=== PATIENT | female | born 1995 | race Caucasian/White ===

== ENCOUNTER 2016-06-12 18:22 | Emergency (ER) | payer MEDICAID ==
[~2016-06-12] VITALS: Ht 167.6 cm; Wt 63.9 kg
[~2016-06-12 18:22] MED LIST: NONE PER PT
[2016-06-12] MEDS ORDERED: ONDANSETRON ODT 4 MG ONE (18:41)
[2016-06-12] MEDS ORDERED: ONDANSETRON ODT 4 MG PO ONE (19:00)
[2016-06-12 19:03] LABS: ASPARTATE AMINO TRANSFERASE 24 U/L (15-37); BLOOD UREA NITROGEN 14 mg/dL (7-18)
[2016-06-12 20:40] VITALS: BP 122/78
== END 2016-06-12 20:42 | disposition home or self-care (01) ==
LOC: ED 19:43
DX: R10.32 Left lower quadrant pain (principal); R10.31 Right lower quadrant pain; R10.30 Lower abdominal pain, unspecified; F17.210 Nicotine dependence, cigarettes, uncomplicated; F12.10 Cannabis abuse, uncomplicated; Z90.49 Acquired absence of other specified parts of digestive tract
CPT/HCPCS: 36415; 74000; 76830; 80053; 81003; 84703; 85025; 93005; 99285; Q0162

== ENCOUNTER 2016-08-16 10:04 | Emergency (ER) | payer MEDICAID ==
[~2016-08-16] VITALS: Ht 167.6 cm; Wt 64.0 kg
[2016-08-16 10:06] VITALS: BP 112/72
[2016-08-16] MEDS ORDERED: OMEP-110 PO (10:25)
[2016-08-16 11:00] LABS: BLOOD UREA NITROGEN 7 mg/dL (7-18)
[2016-08-16] MEDS ORDERED: ONDANSETRON ODT 4 MG ONE (11:24)
[2016-08-16] MEDS ORDERED: MAALOX/HYOSCYAMINE/LIDOCAINE 45 ML BOTTLE ONE (11:24)
[2016-08-16] MEDS ORDERED: MAALOX/HYOSCYAMINE/LIDOCAINE 45 ML BOTTLE PO ONE (11:30)
[2016-08-16] MEDS ORDERED: ONDANSETRON ODT 4 MG PO ONE (11:30)
== END 2016-08-16 11:40 | disposition home or self-care (01) ==
LOC: ED 10:48
DX: K29.01 Acute gastritis with bleeding (principal); K21.9 Gastro-esophageal reflux disease without esophagitis; F12.10 Cannabis abuse, uncomplicated; Z90.49 Acquired absence of other specified parts of digestive tract
CPT/HCPCS: 36415; 80048; 82040; 84703; 85025; 85610; 85730; 99284; Q0162